=== PATIENT | male | born 1995 | race Two or more races ===

== ENCOUNTER 2024-10-23 07:19 | Day surgery (SDC) | payer BC ==
[~2024-10-23 07:19] MED LIST: Albuterol 0.083% 2.5 MG/3 ML Neb Soln NEB PRN; Midazolam 1 MG/ML 2 ML SDV ONE; Naloxone 0.4 MG/ML SDV IVPUSH PRN; Ondansetron 4 MG/2 ML SDV IVPUSH PRN; Propofol 200 MG/20 ML SDV ONE; dexmedeTOMIDine HCl 200 MCG/2 ML SDV ONE; fentaNYL 100 MCG/2 ML SDV ONE; fentaNYL 50 MCG/ML SDV IVPUSH PRN
[2024-10-23] MEDS: Lactated Ringers 1,000 ML IV SCH (07:39)
[2024-10-23] MEDS ORDERED: ceFAZolin 2 GM in Water For Injection, Sterile 20 ML IVPUSH ONE (08:00)
[2024-10-23] MEDS ORDERED: Ondansetron 4 MG/2 ML SDV ONE (09:10)
[2024-10-23] MEDS ORDERED: Dexamethasone 4 MG/ML 5 ML MDV ONE (09:10)
[2024-10-23] MEDS ORDERED: Ketorolac 30 MG/ML SDV ONE (09:10)
[2024-10-23] MEDS ORDERED: ePHEDrine 50 MG/ML SDV ONE (09:27)
== END 2024-10-23 10:55 | disposition home or self-care (01) ==
LOC: MW.SDS 07:19
PROVIDERS: ATTEND Orthopaedic Surgery
DX: S46.211A Strain of muscle, fascia and tendon of other parts of biceps, right arm, initial encounter (principal); Z79.899 Other long term (current) drug therapy
CPT/HCPCS: 24342; 76000; C1776; J0665; J0690; J1100; J1885; J2003; J2250; J2405; J2704; J3010; J7120; J3490